=== PATIENT | female | born 1955 | race Caucasian/White ===

== ENCOUNTER 2021-08-15 20:15 | Emergency (ER) | payer MEDICARE, OTHER ==
[~2021-08-15] VITALS: Ht 177.8 cm; Wt 72.7 kg
[2021-08-15 20:20] VITALS: TEMP 99
[2021-08-15 21:25] LABS: BASO % 0.3 % (0.0-2.0); EOS % 0.2 % (0.0-4.0); GRAN # 5.3 K/mm3 (1.4-6.5); GRAN % 86.7 % (42.2-75.2); HEMATOCRIT 37.6 % (37.0-47.0); HEMOGLOBIN 13.1 g/dl (12.5-16.0); LYMPH # 0.3 K/mm3 (1.2-3.4); LYMPH % 4.8 % (20.0-51.0); MEAN CELL VOLUME 84 fl (80.0-100.0); MEAN CORPUSCULAR HEMOGLOBIN 29 pg (27-31); MEAN CORPUSCULAR HGB CONC 35 g/dl (33.0-37.0); MEAN PLATELET VOLUME 10.4 fl (7.4-10.4); MONO # 0.5 K/mm3 (0.1-0.6); MONO % 7.7 % (1.7-9.3); PLATELET COUNT 168 K/mm3 (130-400); RED BLOOD COUNT 4.47 M/mm3 (4.10-5.30); REDCELL DISTRIBUTION WIDTH-CV 13.1 % (11.5-14.5)
[2021-08-15 21:32] LABS: ALBUMIN 4.5 gm/dL (3.4-4.8); BILIRUBIN,TOTAL 0.4 mg/dL (0.2-1.2); CALCIUM 9.4 mg/dL (8.4-10.2); CREATININE, serum 0.82 mg/dL (0.57-1.11); POTASSIUM 3.3 mmol/L (3.5-4.5); TOTAL PROTEIN 8.4 gm/dL (6.2-8.1)
[2021-08-15 21:41] LABS: COLLECTION METHOD CLEAN CATCH
[2021-08-15 21:49] LABS: MUCOUS Present (NOT PRESENT); PH 6 (5-8); URINE APPEARANCE Turbid (CLEAR/HAZY); URINE BACTERIA Moderate /hpf (NONE SEEN); URINE BILIRUBIN Negative (NEGATIVE); URINE BLOOD Negative (NEGATIVE); URINE COLOR Amber (YELLOW); URINE GLUCOSE Negative (NEGATIVE); URINE KETONE 1+ (NEGATIVE); URINE LEUKOCYTE ESTERASE Negative (NEGATIVE); URINE NITRATE Negative (NEGATIVE); URINE PROTEIN(semi-quant) 1+ (NEGATIVE); URINE RBC 20-50 /hpf (0-2)
[2021-08-15] MEDS ORDERED: ZOFRAN ODT4 MG PO (22:44)
[2021-08-15] MEDS ORDERED: MACROBID 1100 MG/CAP PO (22:44)
[2021-08-15] MEDS ORDERED: K-TAB20 PO (22:44)
[2021-08-15 23:00] VITALS: BP 159/91; PULSE 113
== END 2021-08-15 23:00 | disposition home or self-care (01) ==
LOC: COL.ER 20:15
PROVIDERS: Nurse Practitioner Family
DX: N39.0 Urinary tract infection, site not specified (principal); J10.1 Influenza due to other identified influenza virus with other respiratory manifestations; E87.6 Hypokalemia; R74.8 Abnormal levels of other serum enzymes; Z88.0 Allergy status to penicillin; Z20.822 Contact with and (suspected) exposure to COVID-19
CPT/HCPCS: J2405; J7030

== ENCOUNTER 2022-01-26 13:12 | Day surgery (SDC) | payer MEDICARE, OTHER ==
[~2022-01-26] VITALS: Ht 180.3 cm; Wt 72.0 kg
[~2022-01-26 13:12] MED LIST: K-TAB20 PO; MACROBID 1100 MG/CAP PO; ZOFRAN ODT4 MG PO
[2022-01-26 13:53] LABS: BASO # 0.1 K/mm3 (0.0-0.2); BASO % 0.5 % (0.0-2.0); EOS # 0.1 K/mm3 (0.0-0.7); EOS % 1.1 % (0.0-4.0); GRAN # 7.3 K/mm3 (1.4-6.5); GRAN % 77.7 % (42.2-75.2); HEMATOCRIT 34.6 % (37.0-47.0); LYMPH # 1.3 K/mm3 (1.2-3.4); LYMPH % 13.6 % (20.0-51.0); MEAN CELL VOLUME 86 fl (80.0-100.0); MEAN CORPUSCULAR HEMOGLOBIN 30 pg (27-31); MEAN CORPUSCULAR HGB CONC 35 g/dl (33.0-37.0); MEAN PLATELET VOLUME 10.5 fl (7.4-10.4); MONO # 0.6 K/mm3 (0.1-0.6); MONO % 6.6 % (1.7-9.3); PLATELET COUNT 216 K/mm3 (130-400); RED BLOOD COUNT 4.04 M/mm3 (4.10-5.30); REDCELL DISTRIBUTION WIDTH-CV 12.9 % (11.5-14.5)
[2022-01-26 14:10] LABS: ALBUMIN 3.7 gm/dL (3.4-4.8); BILIRUBIN,TOTAL 0.3 mg/dL (0.2-1.2); CALCIUM 9.1 mg/dL (8.4-10.2); CREATININE, serum 0.86 mg/dL (0.57-1.11); POTASSIUM 3.9 mmol/L (3.5-4.5); TOTAL PROTEIN 7.4 gm/dL (6.2-8.1)
[2022-01-26 15:35] LABS: COLLECTION METHOD CLEAN CATCH
[2022-01-26 15:43] LABS: URINE APPEARANCE Hazy (CLEAR/HAZY); URINE BLOOD TRACE-INTACT (NEGATIVE); URINE COLOR Yellow (YELLOW); URINE GLUCOSE Negative (NEGATIVE); URINE KETONE Negative (NEGATIVE); URINE NITRATE Negative (NEGATIVE); URINE PROTEIN(semi-quant) Negative (NEGATIVE); URINE UROBILINOGEN 0.2 E.U/dL (0.2-1.0)
[2022-01-26 15:51] LABS: AMORPHOUS CRYSTAL Present (NOT PRESENT); MUCOUS Present (NOT PRESENT); URINE BACTERIA Rare /hpf (NONE SEEN)
[2022-01-26] MEDS ORDERED: CYMBALTA 60MG60 MG PO (17:41)
[2022-01-26] MEDS ORDERED: NORCO 325 MG-7.1 TAB PO (17:41)
[2022-01-26] MEDS ORDERED: RITALIN LA20 MG PO (17:42)
[2022-01-26] MEDS ORDERED: TENORMIN 5050 MG/TAB PO (17:44)
[2022-01-26] MEDS ORDERED: MOBIC15 MG PO (17:45)
[2022-01-26] MEDS ORDERED: PRILOSEC 20MG20 MG PO (17:45)
[2022-01-26 18:21] VITALS: BP 179/89; PULSE 89
[2022-01-26 20:00] VITALS: BP 149/84; PULSE 78; TEMP 98.4
--- NOTE | 2022-01-26 20:00 | NUR ---
PT IN BED. IS ALERT AND ORIENTED X4. HAS IVF TO RAC INFUSING WITHOUT PROBLEM. PT ASKING FOR FOOD, NO DIET TRAY EVER CAME. ADMISSION QUESTIONS COMPLETED. SANDWICH AND ICE CREAM PROVIDED.
--- NOTE | 2022-01-26 21:50 | NUR ---
PT REPORTS PAIN TO RT ABD, HAS VOIDED WITHOUT STONE BEING STRAINED. MEDICATED WITH FENTANYL 50MCG AND ZOFRAN 4MG IVP AT THIS TIME. PT AWARE SHE WILL BE NPO AFTER MIDNIGHT. SURGERY SCHEDULED FOR 07.
[2022-01-27] VITALS (10 sets, daily range): BP systolic 117–141; BP diastolic 63–87; PULSE 66–91; TEMP 98–98.8
--- NOTE | 2022-01-27 | NUR ---
NPO FOR SURGERY.
--- NOTE | 2022-01-27 06:00 | NUR ---
PT HAS BEEN NPO FOR SURGERY THIS AM. CONSENT HAS BEEN SIGNED.
[2022-01-27] MEDS ORDERED: PYRIDIUM 100MG100 MG PO (06:48)
--- NOTE | 2022-01-27 07:00 | NUR ---
PT DOWN IN OR.
--- NOTE | 2022-01-27 08:30 | NUR ---
PT BACK FROM OR. PT IS AXOX4. NO PAIN AT THIS TIME. VSS. PT AMUBLATED TO RESTROOM. BREAKFAST ORDERED. PT HAS CALL LIGHT AND INSTRUCTED TO CALL WITH ALL NEEDS.
--- NOTE | 2022-01-27 13:28 | NUR ---
DISCHARGE INSTRUCTIONS DISCUSSED WITH PT. ISAI WARNER. PT DRESSED AND TRANSPORTED FOR DISCHARGE BY [facility].
--- NOTE | 2022-01-27 13:49 | NUR ---
Deb: No faith preference Situation: plan consultant stopped by room on rounds Background: Pt was sleeping Assessment: Cattle Broker did not wake up Pt Recommendation: Cattle Broker will see as needed
== END 2022-01-27 14:14 | disposition home or self-care (01) ==
LOC: COL.ER 13:12 → SURG 16:12 → SDCO 16:12 → COL.ER 16:12 → SURG 16:12 → SDCO 01-27 14:14 → SURG 01-27 14:14
PROVIDERS: Emergency Medicine
DX: N13.2 Hydronephrosis with renal and ureteral calculous obstruction (principal); K21.9 Gastro-esophageal reflux disease without esophagitis; G62.9 Polyneuropathy, unspecified; Z89.021 Acquired absence of right finger(s)
CPT/HCPCS: OP; C1769; G0378; J0690; J0696; J1885; J2405; J2704; J3010; J7030; J7120; Q9966; Q9967

== ENCOUNTER 2022-06-28 15:12 | Outpatient (RCR) | payer MEDICARE, OTHER ==
[~2022-06-28 15:12] MED LIST changes: +CYMBALTA 60MG60 MG PO; +MOBIC15 MG PO; +NORCO 325 MG-7.1 TAB PO; +PRILOSEC 20MG20 MG PO; +PYRIDIUM 100MG100 MG PO; +RITALIN LA20 MG PO; +TENORMIN 5050 MG/TAB PO
== END 2022-06-29 | disposition home or self-care (01) ==
LOC: COL.CR
DX: Z48.812 Encounter for surgical aftercare following surgery on the circulatory system (principal); Z98.61 Coronary angioplasty status; I25.2 Old myocardial infarction

== ENCOUNTER 2022-07-26 15:09 | Outpatient (RCR) | payer MEDICARE, OTHER | END 2022-07-27 | disposition home or self-care (01) | LOC: COL.CR | DX: Z48.812 Encounter for surgical aftercare following surgery on the circulatory system (principal); Z98.61 Coronary angioplasty status; I25.2 Old myocardial infarction ==